=== PATIENT | male | born 1970 | race African-American/Black ===

== ENCOUNTER → 2016-12-21 | Outpatient (CLI) | payer OTHER ==
--- NOTE | 2016-12-21 16:36 | RAD ---
MR of the left shoulder Indication: Shoulder and biceps pain after an injury on December 11. [place] a pop in the upper arm. Technique: Standard multiplanar sequences are obtained. Findings: Mild motion degradation. Acromioclavicular joint: Mildly degenerative. Rotator cuff: Thickening and increased signal compatible with tendinosis. No evidence of a rotator cuff tear. No significant subdeltoid bursal fluid. Glenohumeral cartilage: No acute defect or advanced DJD. Fluid: No significant joint effusion. Labrum: Distortion and signal at the posterior through superior labrum. Although this may be exaggerated by motion, findings are still suspicious for a degenerative tear. Biceps tendon: Small stump of the tendon is visualized at the biceps anchor. The remaining intra-articular aspect is not visualized at the shoulder. The sagittal and coronal images and include the upper aspect of the arm and the biceps tendon is retracted into the upper arm. Its superior edge is located about 10 cm below the top of the humerus. There is a complex fluid collection or hematoma around the visualized tendon. Bones: No lesion or acute fracture. Soft tissue: No acute findings. Impression: 1. Rupture of the proximal biceps tendon. With retraction into the upper arm. 2. Rotator cuff tendinosis. 3. Posterior through superior labral tear. Electronically signed by: Mil Iglesias MD (12/21/2016 4:32 PM) [id number]
== END | disposition home or self-care (01) ==
LOC: MRI 15:22
PROVIDERS: ATTEND Orthopaedic Surgery
DX: S43.432A Superior glenoid labrum lesion of left shoulder, initial encounter (principal); S46.212A Strain of muscle, fascia and tendon of other parts of biceps, left arm, initial encounter; M75.22 Bicipital tendinitis, left shoulder; X58.XXXA Exposure to other specified factors, initial encounter; Y93.89 Activity, other specified; Y92.89 Other specified places as the place of occurrence of the external cause; Y99.8 Other external cause status
CPT/HCPCS: 73221